=== PATIENT | male | born 1960 | race Caucasian/White ===

== ENCOUNTER 2022-06-17 13:43 | Emergency (ER) | payer MEDICARE ==
[~2022-06-17] VITALS: Ht 172.7 cm; Wt 99.8 kg
[2022-06-17] MEDS ORDERED: LANTUS SOL100 UNIT/1 SUB-Q (14:18)
[2022-06-17] MEDS ORDERED: LISINOPRIL20 MG PO (14:19)
[2022-06-17] MEDS ORDERED: CEPHALEXIN500 M1 PO (16:24)
== END 2022-06-17 16:59 | disposition home or self-care (01) ==
LOC: ED 13:43
DX: E11.622 Type 2 diabetes mellitus with other skin ulcer (principal); Z88.5 Allergy status to narcotic agent; Z79.4 Long term (current) use of insulin
CPT/HCPCS: 73552; 73560; 99283-25

== ENCOUNTER 2022-07-24 19:22 | Emergency (ER) | payer MEDICARE ==
[~2022-07-24] VITALS: Ht 172.7 cm; Wt 99.8 kg
[~2022-07-24 19:22] MED LIST: CEPHALEXIN500 M1 PO; LANTUS SOL100 UNIT/1 SUB-Q; LISINOPRIL20 MG PO
[2022-07-24 22:24] VITALS: BP 180/90
== END 2022-07-24 21:40 | disposition other institution, planned readmission (95) ==
LOC: ED 19:22
DX: K59.00 Constipation, unspecified (principal); Z53.21 Procedure and treatment not carried out due to patient leaving prior to being seen by health care provider
CPT/HCPCS: 81001

== ENCOUNTER 2022-11-19 23:07 | Emergency (ER) | payer MEDICARE, OTHER ==
[~2022-11-19] VITALS: Ht 172.7 cm; Wt 99.8 kg
--- OUTSIDE RECORDS SUMMARY | ~2022-11-19 | XMS | Continuity of Care Document ---
Demographics + + + | Address | [address] | | | [place] [address] | + + + | Preferred Language | Unknown | + + + | Marital Status | Legally | + + + | Rastafarian Affiliation | Unknown | + + + | Race | White | + + + | Ethnic Group | or | + + + Author + + + | Author | [facility] | + + + | Organization | [facility] | + + + | Address | [address] | | | [place] [address] | + + + | Phone | | + + + Care Team Providers + + + + | Care Chlorine Cell Tender Name | Role | Phone | + + + + Unavailable | Unavailable | + + + + Unavailable | Unavailable | + + + + Unavailable | Unavailable | + + + + Allergies and Intolerances + + + + + + | date | description | facility | reaction | severity | + + + + + + | (no date) | Mild | [facility] | (no reaction) | (no severity) | | [facility] | | | + + + + + + | (no date) | Codeine | [facility] | (no reaction) | (no severity) | | [facility] | | | + + + + + + | (no date) | Rash | [facility] | (no reaction) | (no severity) | | | [facility] | | | + + + + + + | (no date) | Codeine | [facility] | (no reaction) | (no severity) | | | [facility] | | | + + + + + + | (no date) | Codeine | [facility] | (no reaction) | (no severity) | | | [facility] | | | + + + + + + Encounters No information. Functional Status No information. Immunizations No information. Medications + + + + | date | description | facility | + + + + | 2022-06-17 00:00 | CEPHALEXIN | [facility] | + + + + | 2022-06-17 00:00 | CEPHALEXIN | [facility] | + + + + | 2022-06-17 00:00 | LISINOPRIL | [facility] | + + + + | 2022-07-24 00:00 | LISINOPRIL | [facility] | + + + + | 2022-06-17 00:00 | INSULIN | [facility] | | | GLARMONAE,HUM.REC.ANLOG | | + + + + | 2022-07-24 00:00 | INSULIN | [facility] | | | GLARGINE,HUM.REC.ANLOG | | + + + + Problems + + + + | date | description | facility | + + + + | 2022-06-17 00:00 | Ulcer of lower extremity | [facility] | | | due to diabetes mellitus | | + + + + | 2022-06-17 00:00 | Ulcer of lower extremity | [facility] | | | due to diabetes mellitus | | + + + + | 2022-07-24 00:00 | Patient left without being | [facility] | | | seen | | + + + + Procedures No information. Results/Labs +--------+--------+ +---------+--------+---------+ | test | date | facility | value | unit | notes | +--------+--------+ +---------+--------+---------+ + + | Result panel 1 | + + + + + + + + + | | 2022-07-24 | [facility] | YELLOW | (missing) | (missing) | | (unavailable | 19:40:07 [facility] | | | | + + + + + + + + + | Result panel 2 | + + + + + + + + + | | 2022-07-24 | [facility] | NORMAL | (missing) | (missing) | | (unavailable | [facility]40:07 [facility] | | | | + + + + + + + + + | Result panel 3 | + + + + + + + + + | | 2022-07-24 | [facility] | NEGATIVE | (missing) | (missing) | | (unavailable | [facility]40[facility]07 [facility] | | | | + + + + + + + + + | Result panel 4 | + + + + + +---------+ + + | | 2022-07-24 | [facility] | SMALL | (missing) | (missing) | | (unavailable | [facility]40:07 [facility] | | | | + + + +---------+ + + + + | Result panel 5 | + + + + + +-------+ + + | | 2022-07-24 | [facility] | 4-6 | (missing) | (missing) | | (unavailable | [facility]40[facility]07 [facility] | | | | + + + +-------+ + + + + | Result panel 6 | + + + + + +-------+ + + | | 2022-07-24 | [facility] | >50 | (missing) | (missing) | | (unavailable | [facility]40:07 [facility] | | | | + + + +-------+ + + + + | Result panel 7 | + + + + + + + + + | | 2022-07-24 | [facility] | NONE SEEN | (missing) | (missing) | | (unavailable | [facility]40[facility]07 [facility] | | | | + + + + + + + + + | Result panel 8 | + + + + + + + + + | | 2022-07-24 | [facility] | NONE SEEN | (missing) | (missing) | | (unavailable | [facility]40:07 [facility] | | | | + + + + + + + + + | Result panel 9 | + + + + + +--------+ + + | | 2022-07-24 | [facility] | RARE | (missing) | (missing) | | (unavailable | [facility]40:07 [facility] | | | | + + + +--------+ + + + + | Result panel 10 | + + + + + + + + + | | 2022-07-24 | [facility] | NONE SEEN | (missing) | (missing) | | (unavailable | [facility]40[facility]07 [facility] | | | | + + + + + + + + + | Result panel 11 | + + + + + +-------+ + + | | 2022-07-24 | [facility] | Yes | (missing) | (missing) | | (unavailable | [facility]40:07 [facility] | | | | + + + +-------+ + + + + | Result panel 12 | + + + + + + + + + | | 2022-07-24 | [facility] | CLOUDY | (missing) | (missing) | | (unavailable | [facility]40:07 [facility] | | | | + + + + + + + + + | Result panel 13 | + + + + + + + + + | | 2022-07-24 | [facility] | CLEAN CATCH | (missing) | (missing) | | (unavailable | [facility]40[facility]07 [facility] | | | | + + + + + + + + + | Result panel 14 | + + + + + + + + + | | 2022-07-24 | [facility] | MODERATE | (missing) | (missing) | | (unavailable | [facility]40[facility]07 [facility] | | | | + + + + + + + + + | Result panel 15 | + + + + + + + + + | | 2022-07-24 | [facility] | NEGATIVE | (missing) | (missing) | | (unavailable | [facility]40[facility]07 [facility] | | | | + + + + + + + + + | Result panel 16 | + + + + + + + + + | | 2022-07-24 | [facility] | NEGATIVE | (missing) | (missing) | | (unavailable | [facility]40:07 [facility] | | | | + + + + + + + + + | Result panel 17 | + + + + + + + + + | | 2022-07-24 | [facility] | >=1.030 | (missing) | (missing) | | (unavailable | [facility]40[facility]07 [facility] | | | | + + + + + + + + + | Result panel 18 | + + + + + +---------+ + + | | 2022-07-24 | [facility] | LARGE | (missing) | (missing) | | (unavailable | [facility]40[facility]07 [facility] | | | | + + + +---------+ + + + + | Result panel 19 | + + + + + +-------+ + + | | 2022-07-24 | [facility] | 6.0 | (missing) | (missing) | | (unavailable | [facility]40:07 [facility] | | | | + + + +-------+ + + + + | Result panel 20 | + + + + + +-------+ + + | | 2022-07-24 | [facility] | 100 | (missing) | (missing) | | (unavailable | [facility]40:07 [facility] | | | | + + + +-------+ + + Social History + + + + | date | description | facility | + + + + | 2022-06-17 00:00 | Unknown if ever smoked | [facility] | + + + + | 2022-07-24 00:00 | Unknown if ever smoked | [facility] | + + + + Vital Signs + + + +---------+ | date | measurement | value | units | + + + +---------+ | 2022-06-17 00:00 | BMI | 33.5 | kg/m2 | + + + +---------+ | 2022-06-17 00:00 | BP_diastolic | 70 | mmHg | + + + +---------+ | 2022-06-17 00:00 | BP_systolic | 162 | mmHg | + + + +---------+ | 2022-06-17 00:00 | heart_rate | 63 | /min | + + + +---------+ | 2022-06-17 00:00 | height_metric | 172.72 | cm | + + + +---------+ | 2022-06-17 00:00 | height_standard | 68 | in | + + + +---------+ | 2022-06-17 00:00 | o2_saturation | 95 | % | + + + +---------+ | 2022-06-17 00:00 | respiration_rate | 18 | /min | + + + +---------+ | 2022-06-17 00:00 | temperature_metric | 37 | C | | | | | | + + + +---------+ | 2022-06-17 00:00 | | 98.6 | F | | | temperature_standar | | | | | d | | | + + + +---------+ | 2022-06-17 00:00 | weight_metric | 99.79 | kg | + + + +---------+ | 2022-06-17 00:00 | weight_standard | 220 | lb | + + + +---------+ | 2022-07-24 00:00 | BMI | 33.5 | kg/m2 | + + + +---------+ | 2022-07-24 00:00 | BP_diastolic | 90 | mmHg | + + + +---------+ | 2022-07-24 00:00 | BP_systolic | 180 | mmHg | + + + +---------+ | 2022-07-24 00:00 | heart_rate | 77 | /min | + + + +---------+ | 2022-07-24 00:00 | height_metric | 172.72 | cm | + + + +---------+ | 2022-07-24 00:00 | height_standard | 68 | in | + + + +---------+ | 2022-07-24 00:00 | o2_saturation | 96 | % | + + + +---------+ | 2022-07-24 00:00 | respiration_rate | 16 | /min | + + + +---------+ | 2022-07-24 00:00 | temperature_metric | 36.44 | C | | | | | | + + + +---------+ | 2022-07-24 00:00 | | 97.6 | F | | | temperature_standar | | | | | d | | | + + + +---------+ | 2022-07-24 00:00 | weight_metric | 99.79 | kg | + + + +---------+ | 2022-07-24 00:00 | weight_standard | 220 | lb | + + + +---------+"
--- OUTSIDE RECORDS SUMMARY | ~2022-11-19 | XMS | Continuity of Care Document ---
Demographics + + + | Address | [address] | | | [place] [address] | + + + | Preferred Language | Unknown | + + + | Marital Status | Legally | + + + | Bahai Affiliation | Unknown | + + + | Race | White | + + + | Ethnic Group | or | + + + Author + + + | Author | [facility] | + + + | Organization | [facility] | + + + | Address | [address] | | | [place] [address] | + + + | Phone | | + + + Care Team Providers + + + + | Care Jig Operator Name | Role | Phone | + [...] | 2022-06-17 00:00 | CEPHALEXIN | [facility] | + + + + | 2022-06-17 00:00 | CEPHALEXIN | [facility] | + + + + | 2022-06-17 00:00 | LISINOPRIL | [facility] | + + + + | 2022-07-24 00:00 | LISINOPRIL | [facility] | + + + + | 2022-06-17 00:00 | INSULIN | [facility] | | | GLARMONAE,HUM.REC.ANLOG | | + + + + | 2022-07-24 00:00 | INSULIN | [facility] | | | GLARGINE,HUM.REC.ANLOG | | + + + + Problems + + + + | date | description | facility | + + + + | 2022-06-17 00:00 | Ulcer of lower extremity | [facility] | | | due to diabetes mellitus | | + + + + | 2022-06-17 00:00 | Ulcer of lower extremity | [facility] | | | due to diabetes mellitus | | + + + + | 2022-07-24 00:00 | Patient left without being | [facility] | | | seen | | + [...] (missing) | | (unavailable | 19:40:07 | [facility] | | | | | ) | [...] 00:00 | Unknown if ever smoked | [facility] | + + + + | 2022-07-24 00:00 | Unknown if ever smoked | [facility] | + + + + Vital Signs [...]
[2022-11-19] MEDS ORDERED: CEPHALEXIN500 MG PO (23:50)
[2022-11-20 00:54] VITALS: BP 184/69
== END 2022-11-20 00:55 | disposition home or self-care (01) ==
LOC: ED 23:07
DX: E11.622 Type 2 diabetes mellitus with other skin ulcer (principal); L97.829 Non-pressure chronic ulcer of other part of left lower leg with unspecified severity; Z88.5 Allergy status to narcotic agent; Z79.4 Long term (current) use of insulin
CPT/HCPCS: 73560; 99283-25; A9270